=== PATIENT | male | born 1970 | race Caucasian/White ===

== ENCOUNTER → 2022-05-15 14:29 | Outpatient (CLI) | payer BC, SELFPAY ==
--- NOTE | ~2022-05-15 | CT_ITS ---
EXAMINATION: CT lumbar spine wo con, CT pelvis wo con DATE: 05/15/2022 15:00 (accession [id number]), 05/15/2022 15:01 (accession [id number]) INDICATION: Low back pain. Tailbone pain. TECHNIQUE: 1. Computed tomography (CT) of the lumbar spine was performed without intravenous contrast. Automated exposure control and iterative reconstruction technique were employed. The dose-length product was 9 02.25 (accession [id number]), 599.18 (accession [id number]) mGy-cm. 2. Computed tomography (CT) of the pelvis was performed without intravenous contrast. Automated expos ure control and iterative reconstruction technique were employed. The dose-length product was 599.18 mGy-cm. COMPARISON: None FINDINGS: Lumbar spine: Minimal 3 mm lumbar levocurvature. Sagittal alignment is normal. Vertebral body heights are normal. M ild disc height loss at T12-L1. Mild to moderate disc height loss with small anterior endplate osteop hytes at L1-L2 and L2-L3. Paravertebral soft tissues are unremarkable. The following disc levels are specifically discussed: T12-L1: Disc is minimally bulging. There is mild right and mild to moderate left facet joint osteoart hritis. There is no neural foraminal stenosis. There is no central canal stenosis. L1-L2: Disc is bulging. There is mild bilateral facet joint osteoarthritis. There is mild bilateral n eural foraminal stenosis. There is mild central canal stenosis. L2-L3: Disc is bulging. There is mild bilateral facet joint osteoarthritis. There is mild bilateral, left greater than right neural foraminal stenosis. There is mild central canal stenosis. L3-L4: Disc is mildly bulging. There is mild bilateral facet joint osteoarthritis. There is mild bila teral neural foraminal stenosis. There is minimal central canal stenosis. L4-L5: Disc is bulging. There is mild left and mild to moderate right facet joint osteoarthritis. The re is mild right and moderate left neural foraminal stenosis. There is mild central canal stenosis. L5-S1: Disc is bulging. There is minimal bilateral facet joint osteoarthritis. There is mild bilatera l neural foraminal stenosis. There is no central canal stenosis. Pelvis: Alignment is normal. Mild osteoarthritis at the bilateral sacroiliac joints. Minimal osteoarthritis a t the bilateral hips. No hip joint effusions. Small bilateral fat-containing inguinal hernias, right larger than left.. Small heterotopic ossicle in the anterior left hemipelvis. Visualized bowels inclu ding the appendix are normal. Bladder is normal. No free fluid in the pelvis. No pathologically enlar ged pelvic or inguinal lymphadenopathy.. IMPRESSION: 1. Mild to moderate upper lumbar spondylosis. 2. Mild bilateral sacroiliac and minimal bilateral hip osteoarthritis. 3. Small bilateral fat-containing inguinal hernias. Reviewed, dictated and finalized at location A. IMPRESSION: 1. Mild to moderate upper lumbar spondylosis. 2. Mild bilateral sacroiliac and minimal bilateral hip osteoarthritis. 3. Small bilateral fat-containing inguinal hernias.
== END ==
PROVIDERS: PCP Internal Medicine; Visit Provider Internal Medicine
DX: K40.20 Bilateral inguinal hernia, without obstruction or gangrene, not specified as recurrent (principal); M53.3 Sacrococcygeal disorders, not elsewhere classified; M16.0 Bilateral primary osteoarthritis of hip; M47.896 Other spondylosis, lumbar region
CPT/HCPCS: 72131; 72192

== ENCOUNTER 2024-10-17 08:16 | Emergency (ER) | payer OTHER, SELFPAY ==
--- NOTE | ~2024-10-17 | XR_ITS ---
EXAMINATION: XR chest 2V DATE: 10/17/2024 08:56 INDICATION: Cough and fever. TECHNIQUE: Frontal and lateral views of the chest were obtained. COMPARISON: None. FINDINGS: There are mild airspace opacities in left lower lung zone. No pleural effusion or pneumotho rax. The heart size is normal. IMPRESSION: 1. Mild airspace opacities in left lower lung zone, consistent with pneumonia. Reviewed, dictated and finalized at location A. [employer]
[2024-10-17 08:26] VITALS: BP 123/85; PULSE 105; RESP 18; TEMP 37.2; O2SAT 97
[2024-10-17 08:31] VITALS: BP 123/85; PULSE 105; RESP 18; TEMP 37.2; O2SAT 97
--- NOTE | 2024-10-17 08:50 | ED.URI ---
HPI - URI/Sore Throat General Chief Complaint: Upper Respiratory Infection Stated Complaint: flu-like symptoms Time Seen by Provider: 10/17/24 08:43 Source: patient and RN notes reviewed Mode of arrival: ambulatory Limitations: no limitations History of Present Illness HPI Narrative: Patient presents today complaining a 5 day history of fever up to 101, productive cough, body aches, sweats. Denies shortness of breath. He has tried Mucinex, Coricidin HBP, and Tylenol. No history of asthma or COPD. He is a nonsmoker. Related Data Allergies Allergy/AdvReac Type Severity Reaction Status Date / Time No Known Allergies Allergy Verified 10/17/24 08:31 Review of Systems Review of Systems: CONSTITUTIONAL: + fever, sweats, body aches EYES: Denies visual changes, redness, or discharge. ENT: Denies rhinorrhea, congestion, sore throat, or otalgia. CARDIOVASCULAR: Denies chest pain, palpitations, or edema. RESPIRATORY: Denies dyspnea.+ cough GASTROINTESTINAL: Denies abdominal pain, nausea, vomiting, or diarrhea. GENITOURINARY: Denies dysuria or hematuria. SKIN: Denies rash, itching, or wounds. MUSCULOSKELETAL: Denies back pain, joint pain, or myalgia. NEUROLOGIC: Denies headache, numbness, tingling, or weakness. PSYCH: Denies depression or anxiety. PMFSH Comments At time of signature, I have reviewed and agree with nursing past medical, surgical, social and family history unless otherwise noted. Please see nursing chart for further information. There is no relevant family history pertinent to the presenting complaint Exam Narrative: GENERAL: Mildly ill-appearing, well-nourished, and in no acute distress. HEAD: Normocephalic, atraumatic. EYES: EOMI. No redness or drainage. Conjunctivae normal. ENT: Mucous membranes pink and moist. Nares clear. No rhinorrhea. TMs normal bilaterally. Throat normal. Uvula midline. NECK: Normal AROM. Supple. No lymphadenopathy. CHEST: No respiratory distress. Coarse throughout. HEART: Regular rate and rhythm. No murmur appreciated. EXTREMITIES: Normal range of motion. No edema. SKIN: Warm, dry, no rash. Capillary refill normal. Normal skin turgor. NEURO: No focal deficits. Alert and oriented x3. Gait steady. PSYCH: Normal affect. No signs of depression or anxiety. Course Course Level of Care: Express Care Visit Vital Signs Vital signs: Vital Signs Temperature 99 F 10/17/24 08:26 Pulse Rate 105 H 10/17/24 08:26 Respiratory Rate 18 10/17/24 08:26 Blood Pressure 123/85 10/17/24 08:26 Pulse Oximetry 97 10/17/24 08:26 Oxygen Delivery Room Air 10/17/24 08:26 Temperature 99 F 10/17/24 08:31 Pulse Rate 105 H 10/17/24 08:31 Respiratory Rate 18 10/17/24 08:31 Blood Pressure 123/85 10/17/24 08:31 Pulse Oximetry 97 10/17/24 08:31 Oxygen Delivery Room Air 10/17/24 08:31 Reviewed MDM - URI/Sore Throat MDM Narrative Medical decision making narrative: X-ray shows left lower lung opacities. Patient will be treated with azithromycin and Augmentin for his pneumonia. He will also be treated with Cheratussin for his cough. Anticipatory guidance given. ED precautions given. Differential Diagnosis Differential diagnosis: Likely upper respiratory infection, viral infection, bronchitis and other (Pneumonia) Imaging Data Radiologist's impression: ITS Impressions Chest X-Ray 10/17/24 09:02 IMPRESSION: 1. Mild airspace opacities in left lower lung zone, consistent with pneumonia. Critical Care Time Critical Care Time Critical Care Time: No Discharge Plan Discharge Clinical Impression: Pneumonia Qualifiers: Pneumonia type: due to unspecified organism Laterality: left Lung location: lower lobe of lung Qualified Code(s): J18.9 - Pneumonia, unspecified organism Patient Disposition: Home, Self-Care Condition: Stable Instructions: Antibiotic Form, Community Acquired Pneumonia (DC) Additional Instructions: Your x-ray shows pneumonia in the left lower portion of your lung. Please take all medications as prescribed. Do not drive within 6 hours of taking the Cheratussin as it can make you drowsy. Follow-up with your PCP in 2-3 days if symptoms are not improving. As discussed, please go to the ER immediately if symptoms worsen to include persistent fever, shortness of breath, chest pain. Your blood pressure was elevated above 120/80 today at Urgent Care. This puts you above the threshold for follow up. Please schedule a followup visit with your personal physician as soon as possible, for further evaluation and treatment. Even blood pressure exceeding 120/80 may indicate pre-hypertension. Prescriptions: New azithromycin 250 mg tablet 250 mg PO DAILY Qty: 6 0RF Rx Instructions: take 500 mg today (day 1), then 250 mg daily on days 2-5. codeine-guaifenesin 10-100 mg/5 mL liquid 5 ml PO Q6H PRN (Reason: cough) Qty: 120 0RF amoxicillin-pot clavulanate 875-125 mg tablet 1 tablet PO Q12H 5 Days Qty: 10 0RF Follow-up/Referrals: Steve,MD Neymar [Primary Care Provider] - Stand Alone Forms: Work/School Release IP Time of Disposition: 09:21
== END 2024-10-17 09:26 | disposition home or self-care (01) ==
PROVIDERS: Emergency Provider Nurse Practitioner; PCP Internal Medicine
DX: J18.9 Pneumonia, unspecified organism (principal); Z98.84 Bariatric surgery status
CPT/HCPCS: 71046; 99213; G0463